=== PATIENT | male | born 1965 | race African-American/Black ===

== ENCOUNTER 2020-08-13 14:03 | Inpatient (IN) | payer OTHER ==
[2020-08-13 14:09] VITALS: BMI 25.2
[2020-08-13] MEDS ORDERED: LACTATED RINGERS SOLUTION 1000 ML INFUS.BAG IV ONE (14:37)
[2020-08-13] MEDS ORDERED: ACETAMINOPHEN 1000 MG/100 ML BAG IVPB ONE (15:00)
[2020-08-13] MEDS ORDERED: ACETAMINOPHEN INJECTION 100 ML IVPB ONE (15:11)
[2020-08-13 15:41] LABS: BASO % 0.2 % (0-2.0); EOS % 0.2 % (0-4.5); HEMATOCRIT 46.2 % (35.4-49); HEMOGLOBIN 15.6 GM/dL (11.7-16.9); LYMPH % 15.4 % (8-40); MCH 29.7 pg (25.7-33.7); MCHC 33.9 g/dl (32.0-35.9); MEAN CELL VOLUME 87.7 fl (80-96); MONO % 10.1 % (3.8-10.2); NEUT % 74.1 % (42.8-82.8); PLATELET COUNT 220 K/MM3 (134-434); RBC 5.26 M/mm3 (4.00-5.60); RDW 12.9 % (11.9-15.9); WHITE BLOOD COUNT 6.8 K/mm3 (4.0-10.0)
[2020-08-13 15:47] LABS: INR 1.15 (0.83-1.09); PROTHROMBIN TIME (PATIENT) 14.1 SEC (9.7-13.0)
[2020-08-13 15:49] LABS: ACTIVATED PTT 28.1 SECONDS (25.2-36.5)
[2020-08-13 15:57] LABS: CHLORIDE 98 mmol/L (98-107); SODIUM 135 mmol/L (136-145)
[2020-08-13 16:00] LABS: ALBUMIN 3.6 g/dl (3.4-5.0); ANION GAP 8 MMOL/L (8-16); BLOOD UREA NITROGEN 39.6 mg/dL (7-18); CALCIUM 8.2 mg/dL (8.5-10.1); CO2 29 mmol/L (21-32); GLUCOSE,RANDOM 142 mg/dL (74-106)
[2020-08-13 16:03] LABS: BILIRUBIN,DIRECT 0.3 mg/dL (0.0-0.2); CREATININE 1.6 mg/dL (0.55-1.3); SGOT/AST 25 U/L (15-37); SGPT/ALT 25 U/L (13-61)
[2020-08-13 16:05] LABS: BILIRUBIN,TOTAL 0.6 mg/dL (0.2-1); LDH 326 U/L (87-246); TOT PROT 7.3 g/dl (6.4-8.2)
[2020-08-13 16:06] LABS: ALK PHOS 63 U/L (45-117)
[2020-08-13] MEDS ORDERED: DEXAMETHASONE SOD PHOSPHATE 10 MG/1 ML VIAL IVPUSH ONE (17:27)
[2020-08-13] MEDS ORDERED: DEXAMETHASONE SOD PHOSPHATE 4 MG/1 ML VIAL ONE (18:48)
[2020-08-13] MEDS ORDERED: ENOXAPARIN NA (PORCINE) 80 MG/0.8 ML DISP.SYRIN SQ ONE (18:49)
[2020-08-13] MEDS: SODIUM CHLORIDE 1,000 ML IV SCH (19:03)
[2020-08-13] MEDS: ENOXAPARIN NA (PORCINE) 80 MG/0.8 ML DISP.SYRIN SQ SCH (19:04)
[2020-08-13] MEDS ORDERED: ZINC SULFATE 220 MG CAPSULE (FP) ONE (21:47)
[2020-08-13] MEDS ORDERED: INSULIN (LEVEMIR) 100 UNITS/ML UNITS SQ ONE (21:47)
[2020-08-13] MEDS ORDERED: ASCORBIC ACID 500 MG TABLET (FP) ONE (21:47)
[2020-08-13] MEDS: INSULIN (LEVEMIR) 100 UNITS/ML UNITS SQ SCH (21:59)
[2020-08-13] MEDS: ASCORBIC ACID 500 MG TABLET (FP) PO SCH (21:59)
[2020-08-13] MEDS: ZINC SULFATE 220 MG CAPSULE (FP) PO SCH (21:59)
[2020-08-13] MEDS: INSULIN SLIDING SCALE (NOVOLOG) 1 VIAL SQ SCH (22:00)
[2020-08-14] MEDS: ENOXAPARIN NA (PORCINE) 80 MG/0.8 ML DISP.SYRIN SQ SCH ×2 (05:52→17:38)
[2020-08-14] MEDS ORDERED: ACETAMINOPHEN 325 MG TABLET (FP) PO PRN (06:00)
[2020-08-14] MEDS: INSULIN (LEVEMIR) 100 UNITS/ML UNITS SQ SCH ×2 (06:08→22:00)
[2020-08-14] MEDS: INSULIN SLIDING SCALE (NOVOLOG) 1 VIAL SQ SCH ×4 (06:08→21:58)
[2020-08-14 07:54] LABS: HEMATOCRIT 40.8 % (35.4-49); HEMOGLOBIN 13.9 GM/dL (11.7-16.9); MCH 29.9 pg (25.7-33.7); MCHC 34.1 g/dl (32.0-35.9); MEAN CELL VOLUME 87.7 fl (80-96); MEAN PLT VOLUME 8.8 fl (7.5-11.1); PLATELET COUNT 214 K/MM3 (134-434); RBC 4.66 M/mm3 (4.00-5.60); RDW 12.7 % (11.9-15.9); WHITE BLOOD COUNT 3.6 K/mm3 (4.0-10.0)
[2020-08-14 08:19] LABS: CALCIUM 7.9 mg/dL (8.5-10.1)
[2020-08-14 08:20] LABS: BLOOD UREA NITROGEN 28.1 mg/dL (7-18)
[2020-08-14 08:23] LABS: BILIRUBIN,TOTAL 0.6 mg/dL (0.2-1); CREATININE 1.1 mg/dL (0.55-1.3); TOT PROT 6.5 g/dl (6.4-8.2)
[2020-08-14] MEDS ORDERED: DEXAMETHASONE SOD PHOSPHATE 10 MG/1 ML VIAL IVPUSH SCH (10:00)
[2020-08-14] MEDS: DEXAMETHASONE SOD PHOSPHATE 4 MG/1 ML VIAL IVPUSH SCH (11:26)
[2020-08-14] MEDS: ASCORBIC ACID 500 MG TABLET (FP) PO SCH ×2 (11:26→22:01)
[2020-08-14] MEDS: SODIUM CHLORIDE 1,000 ML IV SCH (11:27)
[2020-08-14] MEDS: CHOLECALCIFEROL (VIT D3) 1,000 UNIT (25 MCG) TABLET PO SCH (11:38)
[2020-08-14] MEDS: FAMOTIDINE 20 MG/50 ML IVPB 20 MG/50 ML MG IVPB SCH ×2 (11:39→22:03)
[2020-08-14] MEDS ORDERED: INSULIN (NOVOLOG) ASPART 100 UNITS/ML 10ML VIAL ONE (12:03)
[2020-08-14] MEDS: ZINC SULFATE 220 MG CAPSULE (FP) PO SCH ×2 (12:20→22:01)
[2020-08-14] MEDS ORDERED: DEXTROSE 5%-WATER 100 ML IVPB ONE (13:06)
[2020-08-14] MEDS: CEFTRIAXONE 2 GM in DEXTROSE 5%-WATER 2 GM/100 ML BAG IVPB SCH (13:24)
[2020-08-14] MEDS: AZITHROMYCIN IVPB 500 MG/250 ML BAG IVPB SCH (13:25)
[2020-08-15] MEDS: INSULIN SLIDING SCALE (NOVOLOG) 1 VIAL SQ SCH ×2 (06:11→12:05)
[2020-08-15] MEDS: INSULIN (LEVEMIR) 100 UNITS/ML UNITS SQ SCH (06:12)
[2020-08-15] MEDS: ENOXAPARIN NA (PORCINE) 80 MG/0.8 ML DISP.SYRIN SQ SCH (06:16)
[2020-08-15] MEDS ORDERED: INSULIN (LEVEMIR) 100 UNITS/ML UNITS SQ ONE (06:55)
[2020-08-15] MEDS ORDERED: INSULIN (NOVOLOG) ASPART 100 UNITS/ML 10ML VIAL ONE (06:55)
[2020-08-15 08:55] LABS: BASO % 0.3 % (0-2.0); EOS % 0.1 % (0-4.5); HEMATOCRIT 39.1 % (35.4-49); HEMOGLOBIN 13.4 GM/dL (11.7-16.9); LYMPH % 21.4 % (8-40); MCH 29.9 pg (25.7-33.7); MCHC 34.3 g/dl (32.0-35.9); MEAN CELL VOLUME 87.1 fl (80-96); MEAN PLT VOLUME 8.9 fl (7.5-11.1); MONO % 9.9 % (3.8-10.2); NEUT % 68.3 % (42.8-82.8); PLATELET COUNT 267 K/MM3 (134-434); RBC 4.49 M/mm3 (4.00-5.60); WHITE BLOOD COUNT 7.1 K/mm3 (4.0-10.0)
[2020-08-15] MEDS ORDERED: DEXTROSE 5%-WATER 100 ML IVPB ONE (09:29)
[2020-08-15 10:28] LABS: BLOOD UREA NITROGEN 20.3 mg/dL (7-18); CALCIUM 8.8 mg/dL (8.5-10.1); MAGNESIUM 1.7 mg/dL (1.8-2.4)
[2020-08-15 10:32] LABS: PHOSPHOROUS 2.5 mg/dL (2.5-4.9)
[2020-08-15 10:33] LABS: BILIRUBIN,TOTAL 0.4 mg/dL (0.2-1); TOT PROT 6.2 g/dl (6.4-8.2)
[2020-08-15] MEDS ORDERED: MAGNESIUM OXIDE 400 MG TABLET (FP) PO ONE (10:33)
[2020-08-15] MEDS: ASCORBIC ACID 500 MG TABLET (FP) PO SCH (10:34)
[2020-08-15] MEDS: CHOLECALCIFEROL (VIT D3) 1,000 UNIT (25 MCG) TABLET PO SCH (10:34)
[2020-08-15] MEDS: ZINC SULFATE 220 MG CAPSULE (FP) PO SCH (10:34)
[2020-08-15] MEDS: CEFTRIAXONE 2 GM in DEXTROSE 5%-WATER 2 GM/100 ML BAG IVPB SCH (10:35)
[2020-08-15] MEDS: FAMOTIDINE 20 MG/50 ML IVPB 20 MG/50 ML MG IVPB SCH (10:35)
[2020-08-15] MEDS ORDERED: SODIUM ZIRCONIUM CYCLOSILICATE (LOKELMA) 5 GM PACKET PO ONE (11:15)
[2020-08-15] MEDS ORDERED: PT OWN MED DRAWER 7, Y5N ONE (11:24)
[2020-08-15] MEDS ORDERED: ALBUTEROL SO4 HFA INHALER IH ONE (11:51)
[2020-08-15] MEDS: DEXAMETHASONE SOD PHOSPHATE 4 MG/1 ML VIAL IVPUSH SCH (11:54)
[2020-08-15] MEDS: AZITHROMYCIN IVPB 500 MG/250 ML BAG IVPB SCH (12:01)
[2020-08-15 12:39] LABS: ERYTHROCYTE SEDIMENTATION RATE 27 mm/hr (0-20)
[2020-08-15 15:50] LABS: CALCIUM 8.1 mg/dL (8.5-10.1)
[2020-08-15 15:51] LABS: BLOOD UREA NITROGEN 22.4 mg/dL (7-18)
[2020-08-15 15:54] VITALS: BP 110/59; PULSE 87; TEMP 98.4
[2020-08-15 15:54] LABS: CREATININE 1.1 mg/dL (0.55-1.3)
== END 2020-08-15 17:35 | disposition home or self-care (01) | DRG 137 ==
LOC: JER 14:03 → JERBED 17:25 → J8W 08-14 03:37
PROVIDERS: ADMIT Internal Medicine
DX: U07.1 COVID-19 (principal); E11.9 Type 2 diabetes mellitus without complications; I10 Essential (primary) hypertension; E78.5 Hyperlipidemia, unspecified; J12.89 Other viral pneumonia; A08.39 Other viral enteritis; N17.9 Acute kidney failure, unspecified; E87.5 Hyperkalemia; R09.02 Hypoxemia; F41.9 Anxiety disorder, unspecified; E86.0 Dehydration; I95.9 Hypotension, unspecified; R00.0 Tachycardia, unspecified
CPT/HCPCS: 36415; 71045-TC-FY; 71250-TC; 80048; 80053; 80061; 82248; 82550; 82553; 82728; 82962; 83036; 83605; 83615; 83721; 83735; 84100; 84484; 85025; 85027; 85379; 85610; 85651; 85730; 86140; 87040; 87899; 93005; 93010; 94761; 99285-25; C9803; J0131; J1100; U0003

== ENCOUNTER 2023-09-22 04:24 | Day surgery (SDC) | payer OTHER ==
[2023-09-17 14:36] VITALS: BMI 25.9
[~2023-09-22 04:24] MED LIST: ACETAMINOPHEN 325 MG TABLET (FP) PO PRN
[2023-09-22] MEDS ORDERED: CYCLOPENTOLATE HCL 1% OPHTH SOLN 2 ML BOTTLE ONE (06:24)
[2023-09-22] MEDS ORDERED: KETOROLAC TROMETHAMINE 0.5% EYE DROP 1 DROP DROPS ONE (06:24)
[2023-09-22] MEDS ORDERED: OFLOXACIN 0.3% OPHTHALMIC SOLUTION 5 ML BOTTLE ONE (06:24)
[2023-09-22] MEDS ORDERED: TROPICAMIDE 1% OPHTH SOLN 15 ML BOTTLE ONE (06:24)
[2023-09-22] MEDS ORDERED: PHENYLEPHRINE 2.5% OPTHALMIC DROP 2ML BOTTLE ONE (06:24)
[2023-09-22] MEDS: CYCLOPENTOLATE HCL 1% OPHTH SOLN 2 ML BOTTLE OP SCH (06:28)
[2023-09-22] MEDS: PHENYLEPHRINE 2.5% OPHTH SOLN 15 ML BOTTLE OP SCH (06:29)
[2023-09-22] MEDS: OFLOXACIN 0.3% OPHTHALMIC SOLUTION 5 ML BOTTLE OP SCH (06:29)
[2023-09-22] MEDS: KETOROLAC TROMETHAMINE 0.5% EYE DROP 1 DROP DROPS OP SCH (06:29)
[2023-09-22] MEDS: TROPICAMIDE 1% OPHTH SOLN 15 ML BOTTLE OP SCH (06:30)
[2023-09-22] MEDS ORDERED: VANCOMYCIN 500 MG VIAL (RESTRICTED TO ID ONLY) ONE (07:20)
[2023-09-22] MEDS ORDERED: LIDOCAINE HCL/PF 1% SDV 5ML VIAL ONE (07:20)
[2023-09-22] MEDS ORDERED: TETRACAINE 0.5% OPHTH SOLN 2 ML BOTTLE ONE (07:20)
[2023-09-22] MEDS ORDERED: POVIDONE-IODINE 5% OPHTHALMIC PREP 30 ML SOLUTION ONE (07:21)
[2023-09-22] MEDS ORDERED: TRYPAN BLUE 0.5 ML DISP.SYRIN ONE (07:21)
[2023-09-22] MEDS ORDERED: MIDAZOLAM HCL 2 MG/2 ML SINGLE DOSE VIAL ONE (07:52)
[2023-09-22] MEDS ORDERED: ATROPINE SO4 0.4 MG/1 ML VIAL ONE (07:52)
[2023-09-22] MEDS: TETRACAINE 0.5% OPHTH SOLN 2 ML BOTTLE OD ONE ×2 (08:11)
[2023-09-22] MEDS: POVIDONE-IODINE 5% OPHTHALMIC PREP 30 ML SOLUTION OD ONE ×2 (08:14)
[2023-09-22] MEDS: BSS (NA/CA/MG/K) BALANCED SALT SOLUTION OPHTH SOLN 15 ML BOTTLE OD ONE ×2 (08:18)
[2023-09-22] MEDS: LIDOCAINE HCL 1% PRESERVATIVE FREE - 30ML VIAL IO ONE ×2 (08:19)
[2023-09-22] MEDS: CHONDROITIN SU A/HYALUR SOD 1 KIT IO ONE ×2 (08:24)
[2023-09-22] MEDS: EPINEPHrine/PF 1 MG/1 ML (1:1,000) AMPULE SQ ONE ×2 (08:30)
[2023-09-22] MEDS: VANCOMYCIN 500 MG VIAL (RESTRICTED TO ID ONLY) IVPB ONE ×2 (08:34)
[2023-09-22 10:18] VITALS: RESP 20; TEMP 97.3
[2023-09-22 10:30] VITALS: BP 115/72; PULSE 57
== END 2023-09-22 09:49 | disposition home or self-care (01) ==
LOC: JASU-SURG 04:24
PROVIDERS: ATTEND Ophthalmology
PROC: 08RJ3JZ Replacement of Right Lens with Synthetic Substitute, Percutaneous Approach (ICD-10-PCS; principal; 2023-09-22 08:00)
DX: H26.9 Unspecified cataract (principal)
CPT/HCPCS: 82962; V2632